=== PATIENT | male | born 1980 | race Caucasian/White ===

== ENCOUNTER 2019-02-23 08:18 | Emergency (ER) | payer OTHER, SELFPAY ==
[2019-02-23 08:19] VITALS: BP 121/85; PULSE 85; RESP 17; TEMP 36.7; O2SAT 97; BMI 30.7
--- NOTE | 2019-02-23 09:05 | ED.DCSUM_ITS ---
- ER Visit Summary Date of Service: 02/23/19 Chief Complaint: [Rectal bleeding] History of Present Illness: The patient is a 38 M [presents to the emergency department with bleeding from his rectum this morning. Patient states that he sat on the toilet feeling like he needed to have a bowel movement but did not pass any stool. Patient wiped his bottom and noted when he threw the toilet paper into the toilet bowl that there was blood on the toilet paper. Patient describes some mild pressure in his rectum. Patient has had hemorrhoids in the past. He denies passing any hard stools. Patient has no family history of inflammatory bowel disease or colon cancer. He denies any abdominal pain. He said no fever or recent illness.] Physical Examination: [HEENT-PERRLA, EOMI. Cranial nerves II through XII grossly intact. TMs clear. Mucous membranes moist. No adenopathy. Cardiovascular-regular rate and rhythm without murmur or ectopy Lungs-clear to auscultation, chest wall stable without crepitus or subcu emphysema Abdomen-normoactive bowel sounds, soft, nontender, no rebound or rigidity, no peritoneal signs. Rectal exam-patient has small area of excoriated tissue at about 6 o'clock position on the rectum however there is no active bleeding. No hemorrhoids noted. On rectal exam he had brown stool and no masses palpated in the rectal vault. Extremities-intact ?4, normal range of motion, normal pulses, atraumatic] Test Results: [Hemoccult of stool was negative.] Emergency Department Course and Treatment: None Treatment Plan: [At this point I just recommended close observation and follow- up with primary care physician. Patient advised to return to ER if persistent heavy bleeding or passing clots. Patient to return if fever or abdominal pain or conditions worsen anyway. At this point I suspect just some likely superficial irritation around the rectum.] Disposition: [Discharged home stable condition.] Impression: [Rectal bleeding-stable] This note was generated with [employer] dictation software. It may contain incorrect words, spelling, and punctuation that were not noted in review of the chart prior to signing ED Disposition - Plan for ED Patient: Referrals: Karyn Rosado PA [Primary Care Provider] -
--- NOTE | 2019-02-23 09:24 | ED.DEP ---
ED Disposition - Plan for ED Patient: Instructions: RECTAL BLEED, Stable Referrals: Karyn Rosado PA [Primary Care Provider] - 5-7 Days
== END 2019-02-23 10:25 | disposition home or self-care (01) ==
LOC: ED 08:58
PROVIDERS: Emergency Provider Emergency Medicine; Family Provider Physician Assistant Medical; PCP Physician Assistant Medical
DX: K62.5 Hemorrhage of anus and rectum (principal); Z72.0 Tobacco use
CPT/HCPCS: 82274; 99282

== ENCOUNTER → 2019-10-09 07:21 | Outpatient (CLI) | payer OTHER, SELFPAY ==
[2019-10-09 08:15] LABS: Absolute Lymphocyte Count 2.15 X10^3/uL (0.83-4.51); Absolute Neutrophil Count 2.7 X10^3/uL (2.0-7.7); Basophil# 0.02 X10^3/uL; Basophil% 0.4 % (0-1); Eosinophil# 0.19 X10^3/uL; Eosinophils% 3.4 % (0-5); Hematocrit 46.1 % (40-54); Hemoglobin 15.6 g/dL (13.0-16.5); Lymphocyte # 2.15 X10^3/ul (4.0); Lymphocyte % 38.4 % (19-41); Mean Corp Hgb Conc 33.8 g/dL (32-36); Mean Corpuscular Hgb 29.1 pg (27.0-32.0); Mean Platelet Vol. 9.2 fl (6.2-12.0); Monocyte# 0.52 X10^3/uL; Monocyte% 9.3 % (0-10); NRBC Flagged by Analyzer 0 % (0-5); Neutrophil # 2.71 X10^3/uL (2.7-7.7); Neutrophil % 48.3 % (47-70); Platelet Count 199 K/mm3 (150-450); RBC Distribution Width CV 12.2 % (11.6-14.6); RBC Distribution Width SD 38.5 fl (35.1-43.9); Red Blood Count 5.36 M/mm3 (4.6-6.2); White Blood Count 5.6 K/mm3 (4.4-11.0)
[2019-10-09 08:59] LABS: ALB/GLOB Ratio 1.2 RATIO (0.9-2.4); AST(SGOT) 13 U/L (15-37); Alanine Aminotransfer ALT/SGPT 27 U/L (16-61); Alkaline Phosphatase 70 U/L (45-117); Anion Gap 5 (5-15); BUN 18 mg/dL (7-18); BUN/Creat Ratio 16.8 RATIO (10-20); Calcium,Total 9.3 mg/dL (8.5-10.1); Chloride 108 mmol/L (98-107); Cholesterol 179 mg/dL (200); Creatinine, Serum 1.07 mg/dL (0.70-1.30); EST Glomerular Filtration Rate 81 mL/min (>60); Est Glom Filt Rate - Afr Amer 98 mL/min (>60); Ferritin 70 ng/mL (26-388); Globulin 3.3 g/dL (2.2-4.2); Glucose 105 mg/dL (74-106); High Density Lipoprotein 42 mg/dL; Iron 83 ug/dL (65-175); Potassium 3.7 mmol/L (3.5-5.1); Protein, Total 7.3 g/dL (6.4-8.2); Sodium Level 140 mmol/L (136-145); T4 Free Direct 0.72 ng/dL (0.76-1.46); Thyroid Stim Hormone (TSH) 1.59 uIU/mL (0.358-3.74); Triglycerides 59 mg/dL; Very Low Density Lipoprotein 12 mg/dL (5-40)
[2019-10-12 09:28] LABS: Vitamin B12 485 pg/mL (211-911)
== END ==
LOC: LAB 07:25
PROVIDERS: PCP Physician Assistant Medical; Visit Provider Physician Assistant Medical
DX: Z00.00 Encounter for general adult medical examination without abnormal findings (principal); R53.83 Other fatigue
CPT/HCPCS: 36415; 80053; 80061; 82607; 82728; 83540; 84403; 84439; 84443; 85025

== ENCOUNTER 2025-03-10 19:22 | Emergency (ER) | payer BC, SELFPAY ==
[2025-03-10 19:23] VITALS: BP 157/104; PULSE 123; RESP 18; TEMP 36.9; O2SAT 94; BMI 37.0
[2025-03-10 19:26] VITALS: BP 157/104; PULSE 123; RESP 18; TEMP 36.9; O2SAT 94
--- NOTE | 2025-03-10 19:37 | EDS_ITS ---
HPI <JAG Oropeza - Last Filed: 03/10/25 21:19> History of Present Illness Chief Complaint: Lower Extremity Injury Narrative Narrative: 44-year-old male with no known past medical history presents with bilateral ankle swelling and pain on the bottom of both feet over the last 3 days. He states over the last month he had bright red spots on the front and back of his lower shins but these have improved on their own. He denies fever or chills. He went to urgent care and was sent here for evaluation. His heart rate is elevated but he denies chest pain, shortness of breath, or palpitations. States he used to be a heavy drinker but quit 7 years ago. To his knowledge he is not diabetic. He saw Dr. Sauceda once about 7 years ago and does not follow with a doctor now. He takes no medications other than Aleve for the pain. [facility] <JAG Oropeza - Last Filed: 03/10/25 21:19> [facility] Medical History (Updated 03/10/25 @ 20:53 by JAG Oropeza) History of broken collarbone Sleep apnea Home Medications Medication Instructions Recorded Last Taken Type NK 02/23/19 Unknown History Allergy/AdvReac Type Severity Reaction Status Date / Time codeine AdvReac Vomiting Verified 03/10/25 19:23 Family History no significant family his Surgical History H/O wisdom tooth extraction Social History Smoking Status: Current every day smoker tobacco type: cigarettes alcohol intake: never ROS <JAG Oropeza - Last Filed: 03/10/25 21:19> ROS ED ROS Narrative Constitutional: Negative for fever, chills, malaise. CVS: Negative for palpitations, chest pain, syncope. Respiratory: Negative for shortness of breath. Neuro: Negative for motor/sensory dysfunction. EXAM <JAG Oropeza - Last Filed: 03/10/25 21:19> Physical Exam Narrative Exam Narrative: CONST: Patient sitting in no acute distress. EYES: Normal inspection. NECK: Normal inspection. RESP: No respiratory distress, CTAB. CVS: Tachycardic with regular rhythm, no murmur, no gallop. SKIN: Erythematous dry macular rash on his lower shins. Skin intact, no fluctuance or crepitus. EXTREMITIES: +1 bilateral ankle edema, plantar surfaces both feet appear flushed he has no tenderness of the feet or lower extremities. Full range of motion, 5/5 strength in dorsiflexion and plantarflexion, normal sensation, 2+ DP pulses. NEURO: Alert and answering questions appropriately. PSYCH: Normal affect. Const Vital Signs: 03/10/25 19:23 03/10/25 19:26 03/10/25 20:26 Temperature 98.5 F 98.5 F 98.5 F Temperature Source Oral Oral Oral Pulse Rate 123 H 123 H 106 H Respiratory Rate 18 18 18 Blood Pressure 157/104 H 157/104 H 144/84 H Blood Pressure Mean 121 121 104 Pulse Ox 94 94 93 Oxygen Delivery Method Room Air Room Air Room Air 03/10/25 21:00 Temperature 98.5 F Temperature Source Pulse Rate 104 H Respiratory Rate 18 Blood Pressure 146/90 H Blood Pressure Mean 108 Pulse Ox 92 Oxygen Delivery Method <Dr. Cristobal Swenson MD - Last Filed: 03/10/25 21:40> Physical Exam Const Vital Signs: 03/10/25 19:23 03/10/25 19:26 03/10/25 20:26 Temperature 98.5 F 98.5 F 98.5 F Temperature Source Oral Oral Oral Pulse Rate 123 H 123 H 106 H Respiratory Rate 18 18 18 Blood Pressure 157/104 H 157/104 H 144/84 H Blood Pressure Mean 121 121 104 Pulse Ox 94 94 93 Oxygen Delivery Method Room Air Room Air Room Air 03/10/25 21:00 Temperature 98.5 F Temperature Source Pulse Rate 104 H Respiratory Rate 18 Blood Pressure 146/90 H Blood Pressure Mean 108 Pulse Ox 92 Oxygen Delivery Method MDM <JAG Oropeza - Last Filed: 03/10/25 21:19> [facility] Narrative Medical decision making narrative: Differential includes but not limited to neuropathy, diabetes, claudication, no history of trauma so unlikely fracture 44-year-old male presents with pain in the plantar surface of both feet. Swelling of both ankles over the last few days. He appears well and nontoxic. He is tachycardic in the 120s with otherwise normal vital signs. Is not febrile. Heart is rapid but regular. Lungs clear. He has trace edema both ankles and a red macular dry rash over the lower shins that looks more like eczema and does not look cellulitic or infected. MSPs are intact. He has no pain or tenderness over the deep venous system. He has no bony tenderness either. CBC is unremarkable. BMP shows elevated creatinine of 1.27. He has been taking a lot of Aleve due to the pain in both feet and likely has a mild SAWYER from that. I recommended he discontinue NSAIDs and take Tylenol as needed. His glucose is 107. LFTs normal. BNP negative. His vital signs have improved without intervention. I am not sure the etiology of his pain. Could be neuropathic. He is not describing claudication symptoms. He has no signs of infectious etiology. I advised him to reestablish with a primary care doctor for further evaluation and he was discharged in stable condition. I have personally performed a face to face assessment of the patient and have reviewed the NICOLAS Note. I performed a substantive portion of the visit including all aspects of the following. My morales findings include: History is remarkable for pain in plantar surface of both feet. He presently does not have pain. Nothing specifically precipitate or exacerbates his pain other than lying down for prolonged period time. He was seen in urgent care and sent to the emergency room because he is tachycardic. He denies history of diabetes. He denies symptoms of claudication. He denies fever or chills. He does have a rash and is applying a Vaseline type ointment on his legs. It is slightly pruritic. He denies joint pain or joint swelling. Exam is remarkable for elevated blood pressure and heart rate. HEENT is grossly unremarkable. Lungs are clear to auscultation. Heart is rapid and regular. There is no other abnormality. Examination of the feet reveal no swelling discoloration. Capillary refill is normal. DP PT pulses normal. There is no pain ovation of plantar surface of his feet. There is no discomfort with forced dorsiflexion of his feet. He does have a rash that appears to be dry skin/eczema. He has no popliteal or inguinal lymphadenopathy. There is no warmth to his feet. There is no swelling or effusion noted of his right or left ankle joint. Medical Decison Making since patient is asymptomatic at this time uncertain what may be causing his pain. Because he is tachycardic we will put patient on monitor and repeat vital signs specially since he is hypertensive as well. Other additions or changes: [None] History & Record Review Discussion w/independent historian: Patient Additional record(s) reviewed:: Prior ED visit and Prior labs Lab Data Attestation: I reviewed the patient's lab results. Labs: Laboratory Results - last 24 hr 03/10/25 19:44 WBC 10.6 RBC 5.08 Hgb 14.9 Hct 43.2 MCV 85.0 MCH 29.3 MCHC 34.5 RDW Std Deviation 40.0 RDW Coeff of Ramon 13.0 Plt Count 231 MPV 9.8 Immature Gran % (Auto) 0.300 Neut % (Auto) 69.1 Lymph % (Auto) 23.4 [place] % (Auto) 5.5 Eos % (Auto) 1.3 Baso % (Auto) 0.4 Absolute Neuts (auto) 7.4 Absolute Lymphs (auto) 2.49 Nucleated RBC % 0 Sodium 136 Potassium 4.1 Chloride 103 Carbon Dioxide 20.0 L Anion Gap 14 BUN 15 Creatinine 1.27 H Estim Creat Clear Calc 88.54 Est GFR (MDRD) Non-Af 71 BUN/Creatinine Ratio 12.1 Glucose 107 H Calcium 10.3 Total Bilirubin 0.59 AST 36 ALT 37 Alkaline Phosphatase 103 NT pro BNP II 71 Total Protein 7.1 Albumin 4.1 Globulin 3.0 Albumin/Globulin Ratio 1.4 <Dr. Cristobal Swenson MD - Last Filed: 03/10/25 21:40> [facility] MDM Narrative Medical decision making narrative: I have personally performed a face to face assessment of the patient and have reviewed the NICOLAS Note. I performed a substantive portion of the visit including all aspects of the following. My morales findings include: History is remarkable for pain in plantar surface of both feet. He presently does not have pain. Nothing specifically precipitate or exacerbates his pain other than lying down for prolonged period time. He was seen in urgent care and sent to the emergency room because he is tachycardic. He denies history of diabetes. He denies symptoms of claudication. He denies fever or chills. He does have a rash and is applying a Vaseline type ointment on his legs. It is slightly pruritic. He denies joint pain or joint swelling. Exam is remarkable for elevated blood pressure and heart rate. HEENT is grossly unremarkable. Lungs are clear to auscultation. Heart is rapid and regular. There is no other abnormality. Examination of the feet reveal no swelling discoloration. Capillary refill is normal. DP PT pulses normal. There is no pain ovation of plantar surface of his feet. There is no discomfort with forced dorsiflexion of his feet. He does have a rash that appears to be dry skin/eczema. He has no popliteal or inguinal lymphadenopathy. There is no warmth to his feet. There is no swelling or effusion noted of his right or left ankle joint. Medical Decison Making since patient is asymptomatic at this time uncertain what may be causing his pain. Because he is tachycardic we will put patient on monitor and repeat vital signs specially since he is hypertensive as well. Other additions or changes: [None] Lab Data Lab results narrative: CBC is normal. Electrolyte panel was a CO2 of 20 with a normal anion gap. Glucose slightly elevated 107. Liver enzymes are normal. Labs: Laboratory Results - last 24 hr 03/10/25 19:44 WBC 10.6 RBC 5.08 Hgb 14.9 Hct 43.2 MCV 85.0 MCH 29.3 MCHC 34.5 RDW Std Deviation 40.0 RDW Coeff of Ramon 13.0 Plt Count 231 MPV 9.8 Immature Gran % (Auto) 0.300 Neut % (Auto) 69.1 Lymph % (Auto) 23.4 [place] % (Auto) 5.5 Eos % (Auto) 1.3 Baso % (Auto) 0.4 Absolute Neuts (auto) 7.4 Absolute Lymphs (auto) 2.49 Nucleated RBC % 0 Sodium 136 Potassium 4.1 Chloride 103 Carbon Dioxide 20.0 L Anion Gap 14 BUN 15 Creatinine 1.27 H Estim Creat Clear Calc 88.54 Est GFR (MDRD) Non-Af 71 BUN/Creatinine Ratio 12.1 Glucose 107 H Calcium 10.3 Total Bilirubin 0.59 AST 36 ALT 37 Alkaline Phosphatase 103 NT pro BNP II 71 Total Protein 7.1 Albumin 4.1 Globulin 3.0 Albumin/Globulin Ratio 1.4 Discharge Plan Triage Chief Complaint: Lower Extremity Injury ED Midlevel Provider: Denice Hardwick ED Provider: Cristobal Swenson Dx/Rx/DC Orders Clinical Impression: Bilateral edema of lower extremity, Bilateral foot pain Instructions: ED Peripheral Edema, Bilateral, ED Pain, Acute, Uncertain Cause Prescriptions: No Action NK Primary Care Provider: Jose Alberto Aguirre Referrals: Karyn Rosado, PA [Non-Staff] - Activity Restrictions/Additional Instructions: Normal other than your kidney function is slightly elevated. Your creatinine is 1.27. This could be from taking too much Aleve so I recommend you stop taking this and use Tylenol only. I am not sure of the exact cause of the pain in your feet. It could be neuropathy or nerve pain. You need to see your primary care doctor for further evaluation. Print Language: Thai Disposition Disposition: Home, Self Care Discharge Date/Time: 03/10/25 21:06
[2025-03-10 19:52] LABS: Hematocrit 43.2 % (40-54); Hemoglobin 14.9 g/dL (13.0-16.5); Immature Granulocytes Count 0.030 X10^3/uL (0.0-0.0); Mean Corp Hgb Conc 34.5 g/dL (32-36); Mean Corpuscular Volume 85.0 fL (80-94); Mean Platelet Vol. 9.8 fl (6.2-12.0); NRBC Flagged by Analyzer 0 % (0-5); Platelet Count 231 K/mm3 (150-450); RBC Distribution Width CV 13.0 % (11.6-14.6); RBC Distribution Width SD 40.0 fl (35.1-43.9); Red Blood Count 5.08 M/mm3 (4.6-6.2); White Blood Count 10.6 K/mm3 (4.4-11.0)
[2025-03-10 20:13] LABS: Pro- Brain NATRIURETIC PEPTIDE 71 pg/mL (<=450)
[2025-03-10 20:22] LABS: AST(SGOT) 36 U/L (<=37); Alanine Aminotransfer ALT/SGPT 37 U/L (<=46); Albumin, Serum 4.1 g/dL (3.5-5.0); Alkaline Phosphatase 103 U/L (40-129); Anion Gap 14 (5-15); BUN 15 mg/dL (4-19); BUN/Creat Ratio 12.1 RATIO (10-20); Calcium,Total 10.3 mg/dL (7.6-11.0); Carbon Dioxide 20.0 mmol/L (21.0-32.0); Chloride 103 mmol/L (98-108); Estimated Creatinine Clearance 88.54 ml/min (50-250); Globulin 3.0 g/dL (2.2-4.2); Glucose 107 mg/dL (70-99); Potassium 4.1 mmol/L (3.3-5.1)
[2025-03-10 20:26] VITALS: BP 144/84; PULSE 106; RESP 18; TEMP 36.9; O2SAT 93
[2025-03-10 21:00] VITALS: BP 146/90; PULSE 104; RESP 18; TEMP 36.9; O2SAT 92
== END 2025-03-10 21:06 | disposition home or self-care (01) ==
PROVIDERS: Physician Assistant; Emergency Provider Emergency Medicine; Referring Provider Emergency Medicine; Visit Provider Emergency Medicine
DX: R60.0 Localized edema (principal); M79.672 Pain in left foot; M79.671 Pain in right foot; G47.30 Sleep apnea, unspecified; F17.210 Nicotine dependence, cigarettes, uncomplicated
CPT/HCPCS: 80053; 83880; 85025; 99282; A4216